=== PATIENT | male | born 1995 | race African-American/Black ===

== ENCOUNTER 2023-12-08 10:52 | Emergency (ER) | payer OTHER ==
[~2023-12-08] VITALS: Ht 185.4 cm; Wt 96.6 kg
[2023-12-08 11:07] VITALS: O2SAT 98
[2023-12-08 11:40] LABS: BASOPHILS % 0.2 % (0.0-2.0); EOSINOPHILS % 0.3 % (0.0-5.0); HEMATOCRIT. 46.9 % (42.0-52.0); HEMOGLOBIN. 15.3 g/dL (14.0-18.0); LYMPHOCYTES % 9.3 % (20.0-50.0); MEAN CORPUSCULAR HEMOGLOBIN 30.4 pg (28.0-32.0); MEAN CORPUSCULAR HGB CONC 32.5 g/dL (31.0-37.0); MEAN CORPUSCULAR VOLUME 93.4 fL (80.0-94.0); MEAN PLATELET VOLUME 9.5 fl (7.4-10.4); MONOCYTES % 8.6 % (2.0-8.0); NEUTROPHILS % 81.6 % (40.0-76.0); PLATELET 210 x1000/uL (130-400); RED BLOOD CELL COUNT 5.02 mill/uL (4.7-6.1)
[2023-12-08 11:42] LABS: CLARITY URINE CLEAR (CLEAR); COLOR URINE DARK YELLOW (YELLOW); GLUCOSE URINE NEGATIVE (NEGATIVE); KETONES URINE TRACE (NEGATIVE); LEUKOCYTE ESTERASE URINE 1+ (NEGATIVE); NITRITE URINE NEGATIVE (NEGATIVE); OCCULT BLOOD URINE NEGATIVE (NEGATIVE); PROTEIN URINE TRACE (NEGATIVE); SPECIFIC GRAVITY URINE 1.027 (1.005-1.030)
[2023-12-08 11:54] LABS: CARBON DIOXIDE 29 mEq/L (21-32); CHLORIDE 107 mEq/L (98-107); POTASSIUM 3.4 mEq/L (3.5-5.1); SODIUM 140 mEq/L (136-145)
[2023-12-08 11:55] LABS: CALCIUM 9.7 mg/dL (8.7-10.4)
[2023-12-08 11:56] VITALS: BP 136/75; PULSE 90; RESP 16; TEMP 36.83628; O2SAT 98
[2023-12-08] MEDS: SODIUM CHLORIDE 0.9% 1000ML BAG (SEPSIS BOLUS) IV ONE (11:56)
[2023-12-08] MEDS: PIPERACILLIN/TAZO 3.375G/50ML 50 ML IV ONE (11:57)
[2023-12-08 12:00] LABS: CREATININE 1.3 mg/dL (0.6-1.3); GLUCOSE 89 mg/dL (70-105); UREA NITROGEN BLOOD 9 mg/dL (9-23)
[2023-12-08] MEDS: VANCOMYCIN 1G PREMIX 200 ML IV ONE (12:07)
[2023-12-08 12:29] LABS: PROTHROMBIN TIME 10.9 sec (9.6-11.0)
[2023-12-08 12:38] LABS: MUCUS URINE 1+ /lpf (NONE/TRACE)
[2023-12-08 12:39] LABS: SQUAMOUS EPITHELIAL CELL URINE FEW /lpf (RARE/1+)
[2023-12-08 12:41] LABS: BACTERIA URINE TRACE
[2023-12-08] MEDS ORDERED: LIDOCAINE HCL/EPINEPHRINE 1%-EPI 1:100,000 20ML VIAL INFIL ONE (12:45)
[2023-12-08 12:47] LABS: RBC URINE NONE SEEN /hpf (0-2)
[2023-12-08] MEDS: IOHEXOL-300 100 ML BOTTLE ONE (14:18)
== END 2023-12-08 14:51 | disposition left against medical advice (07) ==
LOC: ER 10:52
DX: S10.96XA Insect bite of unspecified part of neck, initial encounter (principal); Z90.89 Acquired absence of other organs; W57.XXXA Bitten or stung by nonvenomous insect and other nonvenomous arthropods, initial encounter; Y93.89 Activity, other specified; Y92.89 Other specified places as the place of occurrence of the external cause; Y99.8 Other external cause status
CPT/HCPCS: 80048; 81003; 83605; 85025; 85610; 87040; 36415; 84145; 70491; 96368; 96365; 99291; Q9967; J3490; J2543; J3370; J7030; Z7610 ×6